=== PATIENT | female | born 1940 ===

== ENCOUNTER 2022-02-12 11:38 | Inpatient (IN) | payer OTHER ==
[2022-02-12] MEDS ORDERED: ACETAMINOPHEN 1000 MG/100 ML BAG IVPB ONE (12:42)
[2022-02-12] MEDS ORDERED: VANCOMYCIN 1 GM in D5W (PRE-DOCKED) 1,000 MG/250 ML IVPB ONE (12:42)
[2022-02-12] MEDS ORDERED: CEFEPIME HCL/D5W 2 GM/50 ML BAG IVPB ONE (12:42)
[2022-02-12] MEDS ORDERED: CEFEPIME 2 GM/100 ML BAG IVPB ONE (13:24)
[2022-02-12] MEDS ORDERED: VANCOMYCIN/WATER FOR INJ (PEG) 1,000 MG/200 ML BAG IVPB ONE (13:24)
[2022-02-12] MEDS ORDERED: ACETAMINOPHEN INJECTION 100 ML IVPB ONE (13:24)
[2022-02-12 15:09] LABS: HEMATOCRIT 36.4 % (32.4-45.2); HEMOGLOBIN 12.4 GM/dL (10.7-15.3); MCHC 33.9 g/dl (32.0-36.0); MEAN CELL VOLUME 91.4 fl (80-96); MEAN PLT VOLUME 6.9 fl (7.5-11.1); PLATELET COUNT 356 10^3/uL (134-434); RBC 3.99 M/mm3 (3.60-5.2); RDW 15.8 % (11.6-15.6)
[2022-02-12 15:18] LABS: INR 2.9 (0.83-1.09); PROTHROMBIN TIME (PATIENT) 33.7 SEC (9.7-13.0)
[2022-02-12 15:21] LABS: ACTIVATED PTT 48.2 SECONDS (25.2-36.5)
[2022-02-12 15:31] LABS: ALBUMIN 3.5 g/dl (3.4-5.0); BLOOD UREA NITROGEN 15.5 mg/dL (7-18)
[2022-02-12 15:34] LABS: CREATININE 0.6 mg/dL (0.55-1.3)
[2022-02-12 15:36] LABS: BILIRUBIN,TOTAL 0.7 mg/dL (0.2-1); TOT PROT 7.1 g/dl (6.4-8.2)
[2022-02-12 16:35] LABS: ERYTHROCYTE SEDIMENTATION RATE 51 mm/hr (0-30)
[2022-02-12] MEDS ORDERED: WARFARIN NA 1 MG TABLET ONE (20:16)
[2022-02-12] MEDS ORDERED: WARFARIN NA 5 MG TABLET ONE (20:16)
[2022-02-12] MEDS: WARFARIN NA 3 MG TABLET PO SCH (20:17)
[2022-02-12] MEDS: ACETAMINOPHEN 325 MG TABLET (FP) PO PRN (20:18)
[2022-02-12] MEDS ORDERED: ACETAMINOPHEN 325 MG TABLET (FP) ONE (20:20)
[2022-02-12] MEDS: ATORVASTATIN CA 20 MG TABLET (FP) PO SCH (21:47)
[2022-02-13] MEDS ORDERED: CEFEPIME 2 GM in DEXTROSE 5%-WATER 100 ML IVPB SCH (01:00)
[2022-02-13] MEDS: ACETAMINOPHEN 325 MG TABLET (FP) PO PRN ×2 (02:25→21:32)
[2022-02-13] MEDS: LISINOPRIL 10 MG TABLET PO SCH (09:13)
[2022-02-13] MEDS: FUROSEMIDE 20 MG TABLET (FP) PO SCH (09:13)
[2022-02-13] MEDS: NIFEdipine E.R. 30 MG TABLET PO SCH (09:13)
[2022-02-13] MEDS: ATENOLOL 50 MG TABLET (FP) PO SCH (09:13)
[2022-02-13] MEDS ORDERED: ENOXAPARIN NA (PORCINE) 40 MG/0.4 ML DISP.SYRIN SQ SCH (10:00)
[2022-02-13] MEDS ORDERED: VANCOMYCIN 1 GM/200 ML PREMIX BAG IVPB SCH ×2 (10:00)
[2022-02-13] MEDS: DULoxetine HCL 20 MG CAPSULE.DR PO SCH (10:52)
[2022-02-13 11:11] LABS: HEMATOCRIT 36.9 % (32.4-45.2); HEMOGLOBIN 12.6 GM/dL (10.7-15.3); MCH 31.1 pg (25.7-33.7); MCHC 34.2 g/dl (32.0-36.0); MEAN CELL VOLUME 90.9 fl (80-96); MEAN PLT VOLUME 6.7 fl (7.5-11.1); PLATELET COUNT 378 10^3/uL (134-434); RBC 4.06 M/mm3 (3.60-5.2); RDW 15.8 % (11.6-15.6); WHITE BLOOD COUNT 6.9 K/mm3 (4.0-10.0)
[2022-02-13 11:46] LABS: BLOOD UREA NITROGEN 15.6 mg/dL (7-18); CALCIUM 8.7 mg/dL (8.5-10.1)
[2022-02-13 11:49] LABS: CREATININE 0.6 mg/dL (0.55-1.3)
[2022-02-13] MEDS ORDERED: PIPERACILLIN/TAZOBACTAM 3.375 GM VIAL IVPB ONE (13:43)
[2022-02-13] MEDS: PIPERACILLIN/TAZOB 3.375 GM 3.375 GM in DEXTROSE 5%-WATER - 50 ML IVPB SCH ×2 (13:56→17:16)
[2022-02-13] MEDS: WARFARIN NA 3 MG TABLET PO SCH (17:16)
[2022-02-13] MEDS: ATORVASTATIN CA 20 MG TABLET (FP) PO SCH (21:33)
[2022-02-14] MEDS: PIPERACILLIN/TAZOB 3.375 GM 3.375 GM in DEXTROSE 5%-WATER - 50 ML IVPB SCH ×3 (01:31→17:14)
[2022-02-14] MEDS: LISINOPRIL 10 MG TABLET PO SCH (10:09)
[2022-02-14] MEDS: NIFEdipine E.R. 30 MG TABLET PO SCH (10:10)
[2022-02-14] MEDS: ACETAMINOPHEN 325 MG TABLET (FP) PO PRN ×2 (10:10→20:49)
[2022-02-14] MEDS: ATENOLOL 50 MG TABLET (FP) PO SCH (10:10)
[2022-02-14] MEDS: FUROSEMIDE 20 MG TABLET (FP) PO SCH (10:10)
[2022-02-14] MEDS: DULoxetine HCL 20 MG CAPSULE.DR PO SCH (10:10)
[2022-02-14 10:21] LABS: HEMATOCRIT 35.8 % (32.4-45.2); HEMOGLOBIN 11.8 GM/dL (10.7-15.3); MCH 30.3 pg (25.7-33.7); MEAN CELL VOLUME 91.9 fl (80-96); PLATELET COUNT 348 10^3/uL (134-434); RDW 15.9 % (11.6-15.6); WHITE BLOOD COUNT 6.1 K/mm3 (4.0-10.0)
[2022-02-14 10:57] LABS: CALCIUM 8.7 mg/dL (8.5-10.1)
[2022-02-14 10:58] LABS: ALBUMIN 2.9 g/dl (3.4-5.0); BLOOD UREA NITROGEN 15.3 mg/dL (7-18); MAGNESIUM 1.9 mg/dL (1.8-2.4)
[2022-02-14 11:01] LABS: CREATININE 0.6 mg/dL (0.55-1.3); PHOSPHOROUS 2.7 mg/dL (2.5-4.9)
[2022-02-14 11:02] LABS: TOT PROT 6.2 g/dl (6.4-8.2)
[2022-02-14 11:04] LABS: BILIRUBIN,TOTAL 0.5 mg/dL (0.2-1)
[2022-02-14 16:45] VITALS: BMI 24.7
[2022-02-14] MEDS: WARFARIN NA 3 MG TABLET PO SCH (17:14)
[2022-02-14] MEDS: ATORVASTATIN CA 20 MG TABLET (FP) PO SCH (21:00)
[2022-02-15] MEDS: PIPERACILLIN/TAZOB 3.375 GM 3.375 GM in DEXTROSE 5%-WATER - 50 ML IVPB SCH ×3 (01:19→18:30)
[2022-02-15] MEDS: ATENOLOL 50 MG TABLET (FP) PO SCH (10:22)
[2022-02-15] MEDS: NIFEdipine E.R. 30 MG TABLET PO SCH (10:22)
[2022-02-15] MEDS: FUROSEMIDE 20 MG TABLET (FP) PO SCH (10:22)
[2022-02-15] MEDS: LISINOPRIL 10 MG TABLET PO SCH (10:22)
[2022-02-15] MEDS: ACETAMINOPHEN 325 MG TABLET (FP) PO PRN ×2 (10:23→18:30)
[2022-02-15] MEDS: DULoxetine HCL 20 MG CAPSULE.DR PO SCH (10:23)
[2022-02-15 11:08] LABS: EOS % 1.7 % (0-4.5); HEMATOCRIT 32.4 % (32.4-45.2); HEMOGLOBIN 11.2 GM/dL (10.7-15.3); LYMPH % 19.4 % (8-40); MCH 31.5 pg (25.7-33.7); MCHC 34.6 g/dl (32.0-36.0); MEAN CELL VOLUME 91.1 fl (80-96); MEAN PLT VOLUME 6.7 fl (7.5-11.1); MONO % 9.2 % (3.8-10.2); NEUT % 68.7 % (42.8-82.8); PLATELET COUNT 315 10^3/uL (134-434); RBC 3.56 M/mm3 (3.60-5.2); WHITE BLOOD COUNT 6.8 K/mm3 (4.0-10.0)
[2022-02-15 11:12] LABS: INR 3.42 (0.83-1.09); PROTHROMBIN TIME (PATIENT) 39.8 SEC (9.7-13.0)
[2022-02-15 11:31] LABS: ALBUMIN 2.5 g/dl (3.4-5.0); BLOOD UREA NITROGEN 15.6 mg/dL (7-18); CALCIUM 8.5 mg/dL (8.5-10.1); MAGNESIUM 1.9 mg/dL (1.8-2.4)
[2022-02-15 11:34] LABS: BILIRUBIN,TOTAL 0.4 mg/dL (0.2-1); CREATININE 0.5 mg/dL (0.55-1.3); TOT PROT 5.6 g/dl (6.4-8.2)
[2022-02-15] MEDS: WARFARIN NA 3 MG TABLET PO SCH (18:30)
[2022-02-15] MEDS: ATORVASTATIN CA 20 MG TABLET (FP) PO SCH (21:05)
[2022-02-16] MEDS: PIPERACILLIN/TAZOB 3.375 GM 3.375 GM in DEXTROSE 5%-WATER - 50 ML IVPB SCH ×3 (01:03→17:17)
[2022-02-16] MEDS: ATENOLOL 50 MG TABLET (FP) PO SCH (10:03)
[2022-02-16] MEDS: DULoxetine HCL 20 MG CAPSULE.DR PO SCH (10:03)
[2022-02-16] MEDS: FUROSEMIDE 20 MG TABLET (FP) PO SCH (10:03)
[2022-02-16] MEDS: NIFEdipine E.R. 30 MG TABLET PO SCH (10:03)
[2022-02-16] MEDS: ACETAMINOPHEN 325 MG TABLET (FP) PO PRN (10:03)
[2022-02-16] MEDS: LISINOPRIL 10 MG TABLET PO SCH (10:03)
[2022-02-16 12:44] LABS: BASO % 1.2 % (0-2.0); EOS % 2.3 % (0-4.5); HEMATOCRIT 32.9 % (32.4-45.2); HEMOGLOBIN 11.4 GM/dL (10.7-15.3); LYMPH % 22.4 % (8-40); MCH 31.5 pg (25.7-33.7); MCHC 34.6 g/dl (32.0-36.0); MEAN CELL VOLUME 91.2 fl (80-96); MEAN PLT VOLUME 6.7 fl (7.5-11.1); MONO % 11.6 % (3.8-10.2); NEUT % 62.5 % (42.8-82.8); PLATELET COUNT 325 10^3/uL (134-434); RDW 15.5 % (11.6-15.6); WHITE BLOOD COUNT 7.2 K/mm3 (4.0-10.0)
[2022-02-16 13:06] LABS: CALCIUM 8.7 mg/dL (8.5-10.1)
[2022-02-16 13:07] LABS: ALBUMIN 2.7 g/dl (3.4-5.0); BLOOD UREA NITROGEN 16.2 mg/dL (7-18); MAGNESIUM 1.9 mg/dL (1.8-2.4)
[2022-02-16 13:10] LABS: CREATININE 0.5 mg/dL (0.55-1.3); PHOSPHOROUS 3.8 mg/dL (2.5-4.9)
[2022-02-16 13:11] LABS: BILIRUBIN,TOTAL 0.4 mg/dL (0.2-1); TOT PROT 5.7 g/dl (6.4-8.2)
[2022-02-16 16:00] LABS: INR 2.29 (0.83-1.09); PROTHROMBIN TIME (PATIENT) 26.6 SEC (9.7-13.0)
[2022-02-16] MEDS: WARFARIN NA 3 MG TABLET PO SCH (17:17)
[2022-02-16] MEDS: ATORVASTATIN CA 20 MG TABLET (FP) PO SCH (21:48)
[2022-02-17] MEDS: PIPERACILLIN/TAZOB 3.375 GM 3.375 GM in DEXTROSE 5%-WATER - 50 ML IVPB SCH ×2 (01:22→10:21)
[2022-02-17] MEDS: LISINOPRIL 10 MG TABLET PO SCH (10:20)
[2022-02-17] MEDS: FUROSEMIDE 20 MG TABLET (FP) PO SCH (10:20)
[2022-02-17] MEDS: DULoxetine HCL 20 MG CAPSULE.DR PO SCH (10:21)
[2022-02-17] MEDS: ATENOLOL 50 MG TABLET (FP) PO SCH (10:21)
[2022-02-17] MEDS: NIFEdipine E.R. 30 MG TABLET PO SCH (10:21)
[2022-02-17 12:57] LABS: HEMATOCRIT 33.5 % (32.4-45.2); HEMOGLOBIN 11.3 GM/dL (10.7-15.3); MCH 30.8 pg (25.7-33.7); MCHC 33.7 g/dl (32.0-36.0); MEAN CELL VOLUME 91.3 fl (80-96); MEAN PLT VOLUME 6.7 fl (7.5-11.1); PLATELET COUNT 326 10^3/uL (134-434); RBC 3.67 M/mm3 (3.60-5.2); RDW 15.4 % (11.6-15.6); WHITE BLOOD COUNT 6.8 K/mm3 (4.0-10.0)
[2022-02-17 13:01] LABS: INR 2.2 (0.83-1.09); PROTHROMBIN TIME (PATIENT) 25.5 SEC (9.7-13.0)
[2022-02-17] MEDS: CEFTAZIDIME/AVIBACTAM 2.5 GM in DEXTROSE 5%-WATER - 250 ML IVPB SCH ×2 (13:14→17:14)
[2022-02-17 14:04] LABS: ALBUMIN 2.7 g/dl (3.4-5.0)
[2022-02-17 14:05] LABS: BLOOD UREA NITROGEN 16.4 mg/dL (7-18)
[2022-02-17 14:08] LABS: CREATININE 0.6 mg/dL (0.55-1.3)
[2022-02-17 14:09] LABS: BILIRUBIN,TOTAL 0.5 mg/dL (0.2-1); TOT PROT 5.9 g/dl (6.4-8.2)
[2022-02-17] MEDS: WARFARIN NA 3 MG TABLET PO SCH (17:14)
[2022-02-17] MEDS: AMOX TR/POT CLAV 875MG/125MG TABLETS (FP) PO SCH (17:14)
[2022-02-17] MEDS ORDERED: PHYTONADIONE 10 MG/1 ML AMP IVPB ONE (18:52)
[2022-02-17] MEDS: ATORVASTATIN CA 20 MG TABLET (FP) PO SCH (21:55)
[2022-02-18] MEDS: CEFTAZIDIME/AVIBACTAM 2.5 GM in DEXTROSE 5%-WATER - 250 ML IVPB SCH ×3 (03:32→17:19)
[2022-02-18] MEDS: AMOX TR/POT CLAV 875MG/125MG TABLETS (FP) PO SCH ×2 (08:03→16:36)
[2022-02-18 08:27] LABS: HEMATOCRIT 33.4 % (32.4-45.2); HEMOGLOBIN 11.6 GM/dL (10.7-15.3); MCH 31.3 pg (25.7-33.7); MCHC 34.7 g/dl (32.0-36.0); MEAN CELL VOLUME 90.3 fl (80-96); MEAN PLT VOLUME 6.6 fl (7.5-11.1); PLATELET COUNT 304 10^3/uL (134-434); RDW 15.1 % (11.6-15.6); WHITE BLOOD COUNT 6.2 K/mm3 (4.0-10.0)
[2022-02-18] MEDS ORDERED: ENOXAPARIN NA (PORCINE) 60 MG/0.6 ML DISP.SYRIN SQ SCH (08:45)
[2022-02-18 08:49] LABS: CALCIUM 8.8 mg/dL (8.5-10.1)
[2022-02-18 08:50] LABS: ALBUMIN 2.8 g/dl (3.4-5.0); MAGNESIUM 1.9 mg/dL (1.8-2.4)
[2022-02-18 08:53] LABS: CREATININE 0.5 mg/dL (0.55-1.3)
[2022-02-18 08:54] LABS: BILIRUBIN,TOTAL 0.6 mg/dL (0.2-1)
[2022-02-18] MEDS: FUROSEMIDE 20 MG TABLET (FP) PO SCH (09:37)
[2022-02-18] MEDS: NIFEdipine E.R. 30 MG TABLET PO SCH (09:40)
[2022-02-18] MEDS: LISINOPRIL 10 MG TABLET PO SCH (09:40)
[2022-02-18] MEDS: ATENOLOL 50 MG TABLET (FP) PO SCH (09:40)
[2022-02-18 11:14] LABS: INR 1.65 (0.83-1.09); PROTHROMBIN TIME (PATIENT) 19.1 SEC (9.7-13.0)
[2022-02-18] MEDS: DULoxetine HCL 20 MG CAPSULE.DR PO SCH (11:37)
[2022-02-18] MEDS ORDERED: MAGNESIUM SULF 50% (8.12 MEQ/2 ML-1 GM VIAL) IVPB ONE (20:10)
[2022-02-18] MEDS: ATORVASTATIN CA 20 MG TABLET (FP) PO SCH (22:22)
[2022-02-19] MEDS: CEFTAZIDIME/AVIBACTAM 2.5 GM in DEXTROSE 5%-WATER - 250 ML IVPB SCH ×3 (01:31→17:22)
[2022-02-19] MEDS: AMOX TR/POT CLAV 875MG/125MG TABLETS (FP) PO SCH ×2 (08:33→17:02)
[2022-02-19] MEDS: LISINOPRIL 10 MG TABLET PO SCH (10:13)
[2022-02-19] MEDS: NIFEdipine E.R. 30 MG TABLET PO SCH (10:13)
[2022-02-19] MEDS: DULoxetine HCL 20 MG CAPSULE.DR PO SCH (10:13)
[2022-02-19] MEDS: ATENOLOL 50 MG TABLET (FP) PO SCH (10:13)
[2022-02-19] MEDS: FUROSEMIDE 20 MG TABLET (FP) PO SCH (10:13)
[2022-02-19 10:35] LABS: BASO % 0.7 % (0-2.0); EOS % 2.3 % (0-4.5); HEMATOCRIT 35.8 % (32.4-45.2); HEMOGLOBIN 11.9 GM/dL (10.7-15.3); LYMPH % 19.3 % (8-40); MCH 30.3 pg (25.7-33.7); MCHC 33.3 g/dl (32.0-36.0); MEAN PLT VOLUME 6.6 fl (7.5-11.1); MONO % 9.1 % (3.8-10.2); NEUT % 68.6 % (42.8-82.8); PLATELET COUNT 327 10^3/uL (134-434); RBC 3.93 M/mm3 (3.60-5.2); RDW 15.4 % (11.6-15.6); WHITE BLOOD COUNT 7.3 K/mm3 (4.0-10.0)
[2022-02-19 10:41] LABS: INR 1.28 (0.83-1.09); PROTHROMBIN TIME (PATIENT) 14.8 SEC (9.7-13.0)
[2022-02-19 11:28] LABS: CALCIUM 9.1 mg/dL (8.5-10.1)
[2022-02-19 11:29] LABS: BLOOD UREA NITROGEN 12.4 mg/dL (7-18)
[2022-02-19 11:33] LABS: CREATININE 0.4 mg/dL (0.55-1.3)
[2022-02-19] MEDS: ENOXAPARIN NA (PORCINE) 40 MG/0.4 ML DISP.SYRIN SQ SCH (15:45)
[2022-02-19] MEDS: WARFARIN NA 3 MG TABLET PO SCH (17:21)
[2022-02-19] MEDS: ATORVASTATIN CA 20 MG TABLET (FP) PO SCH (22:09)
[2022-02-20] MEDS: CEFTAZIDIME/AVIBACTAM 2.5 GM in DEXTROSE 5%-WATER - 250 ML IVPB SCH ×3 (01:48→17:23)
[2022-02-20] MEDS: ENOXAPARIN NA (PORCINE) 40 MG/0.4 ML DISP.SYRIN SQ SCH ×2 (05:48→17:23)
[2022-02-20] MEDS: AMOX TR/POT CLAV 875MG/125MG TABLETS (FP) PO SCH ×2 (08:24→17:22)
[2022-02-20 09:32] LABS: HEMATOCRIT 34.8 % (32.4-45.2); HEMOGLOBIN 11.4 GM/dL (10.7-15.3); MCH 29.5 pg (25.7-33.7); MCHC 32.6 g/dl (32.0-36.0); MEAN CELL VOLUME 90.5 fl (80-96); MEAN PLT VOLUME 7.2 fl (7.5-11.1); PLATELET COUNT 346 10^3/uL (134-434); RBC 3.85 M/mm3 (3.60-5.2); RDW 15.6 % (11.6-15.6); WHITE BLOOD COUNT 9.6 K/mm3 (4.0-10.0)
[2022-02-20] MEDS: LISINOPRIL 10 MG TABLET PO SCH (10:06)
[2022-02-20] MEDS: NIFEdipine E.R. 30 MG TABLET PO SCH (10:07)
[2022-02-20] MEDS: DULoxetine HCL 20 MG CAPSULE.DR PO SCH (10:07)
[2022-02-20] MEDS: ATENOLOL 50 MG TABLET (FP) PO SCH (10:07)
[2022-02-20 10:10] LABS: ALBUMIN 3.2 g/dl (3.4-5.0); BLOOD UREA NITROGEN 18.3 mg/dL (7-18); CALCIUM 9.1 mg/dL (8.5-10.1)
[2022-02-20 10:13] LABS: CREATININE 0.5 mg/dL (0.55-1.3)
[2022-02-20 10:14] LABS: BILIRUBIN,TOTAL 1.2 mg/dL (0.2-1); TOT PROT 6.8 g/dl (6.4-8.2)
[2022-02-20] MEDS: MULTIVITAMINS THER W-MINERALS COMBO TABLET (FP) PO SCH (17:22)
[2022-02-20] MEDS: WARFARIN NA 3 MG TABLET PO SCH (17:23)
[2022-02-20] MEDS: ASCORBIC ACID 250 MG TABLET (FP) PO SCH ×2 (17:23→21:11)
[2022-02-20] MEDS: AMINO ACIDS/PROTEIN HYDROLYS 30 ML LIQUID.PKT PO SCH (17:23)
[2022-02-20] MEDS: ATORVASTATIN CA 20 MG TABLET (FP) PO SCH (21:11)
[2022-02-21] MEDS: CEFTAZIDIME/AVIBACTAM 2.5 GM in DEXTROSE 5%-WATER - 250 ML IVPB SCH ×3 (02:12→17:06)
[2022-02-21] MEDS: ENOXAPARIN NA (PORCINE) 40 MG/0.4 ML DISP.SYRIN SQ SCH ×2 (06:39→17:05)
[2022-02-21 07:59] LABS: HEMATOCRIT 30.4 % (32.4-45.2); HEMOGLOBIN 10.4 GM/dL (10.7-15.3); MCH 30.9 pg (25.7-33.7); MCHC 34.1 g/dl (32.0-36.0); MEAN CELL VOLUME 90.6 fl (80-96); MEAN PLT VOLUME 6.9 fl (7.5-11.1); PLATELET COUNT 266 10^3/uL (134-434); RBC 3.36 M/mm3 (3.60-5.2); RDW 15.3 % (11.6-15.6); WHITE BLOOD COUNT 9.2 K/mm3 (4.0-10.0)
[2022-02-21 08:13] LABS: ALBUMIN 2.8 g/dl (3.4-5.0); BLOOD UREA NITROGEN 15.1 mg/dL (7-18); CALCIUM 8.8 mg/dL (8.5-10.1); MAGNESIUM 1.9 mg/dL (1.8-2.4)
[2022-02-21 08:15] LABS: CREATININE 0.5 mg/dL (0.55-1.3)
[2022-02-21 08:17] LABS: BILIRUBIN,TOTAL 0.7 mg/dL (0.2-1)
[2022-02-21] MEDS: AMINO ACIDS/PROTEIN HYDROLYS 30 ML LIQUID.PKT PO SCH (09:20)
[2022-02-21] MEDS: AMOX TR/POT CLAV 875MG/125MG TABLETS (FP) PO SCH ×2 (09:20→17:05)
[2022-02-21] MEDS: ASCORBIC ACID 250 MG TABLET (FP) PO SCH ×2 (09:20→20:59)
[2022-02-21] MEDS: LISINOPRIL 10 MG TABLET PO SCH (09:20)
[2022-02-21] MEDS: MULTIVITAMINS THER W-MINERALS COMBO TABLET (FP) PO SCH (09:20)
[2022-02-21] MEDS: DULoxetine HCL 20 MG CAPSULE.DR PO SCH (09:20)
[2022-02-21] MEDS: NIFEdipine E.R. 30 MG TABLET PO SCH (09:20)
[2022-02-21] MEDS: ATENOLOL 50 MG TABLET (FP) PO SCH (09:21)
[2022-02-21] MEDS: ATORVASTATIN CA 20 MG TABLET (FP) PO SCH (20:59)
[2022-02-21] MEDS: ACETAMINOPHEN 325 MG TABLET (FP) PO PRN (20:59)
[2022-02-22] MEDS: CEFTAZIDIME/AVIBACTAM 2.5 GM in DEXTROSE 5%-WATER - 250 ML IVPB SCH ×2 (02:57→09:03)
[2022-02-22] MEDS: ENOXAPARIN NA (PORCINE) 40 MG/0.4 ML DISP.SYRIN SQ SCH (05:19)
[2022-02-22] MEDS: AMINO ACIDS/PROTEIN HYDROLYS 30 ML LIQUID.PKT PO SCH (07:52)
[2022-02-22] MEDS: AMOX TR/POT CLAV 875MG/125MG TABLETS (FP) PO SCH ×2 (07:52→17:38)
[2022-02-22] MEDS: MULTIVITAMINS THER W-MINERALS COMBO TABLET (FP) PO SCH (09:02)
[2022-02-22] MEDS: DULoxetine HCL 20 MG CAPSULE.DR PO SCH (09:02)
[2022-02-22] MEDS: ASCORBIC ACID 250 MG TABLET (FP) PO SCH ×2 (09:02→21:35)
[2022-02-22] MEDS: ATENOLOL 50 MG TABLET (FP) PO SCH (09:02)
[2022-02-22] MEDS: LISINOPRIL 10 MG TABLET PO SCH (09:02)
[2022-02-22] MEDS: NIFEdipine E.R. 30 MG TABLET PO SCH (09:02)
[2022-02-22 10:15] LABS: HEMOGLOBIN 11.2 GM/dL (10.7-15.3); LYMPH % 18.8 % (8-40); MCH 30.8 pg (25.7-33.7); MCHC 34.1 g/dl (32.0-36.0); MEAN CELL VOLUME 90.2 fl (80-96); MONO % 13.1 % (3.8-10.2); NEUT % 65.1 % (42.8-82.8); PLATELET COUNT 298 10^3/uL (134-434); RBC 3.66 M/mm3 (3.60-5.2); RDW 15.8 % (11.6-15.6); WHITE BLOOD COUNT 7.4 K/mm3 (4.0-10.0)
[2022-02-22 10:19] LABS: INR 1.4 (0.83-1.09); PROTHROMBIN TIME (PATIENT) 16.1 SEC (9.7-13.0)
[2022-02-22 10:27] LABS: URINE APPEARANCE CLEAR; URINE BILIRUBIN NEGATIVE (NEGATIVE); URINE COLOR YELLOW; URINE GLUCOSE (UA) NEGATIVE (NEGATIVE); URINE KETONE NEGATIVE (NEGATIVE); URINE LEUK ESTERASE NEGATIVE (NEGATIVE); URINE NITRITE NEGATIVE (NEGATIVE); URINE PROTEIN NEGATIVE (NEGATIVE); URINE UROBILINOGEN 0.2 mg/dL (0.2-1.0)
[2022-02-22 10:49] LABS: BLOOD UREA NITROGEN 14.4 mg/dL (7-18); CALCIUM 8.5 mg/dL (8.5-10.1); CREATININE 0.4 mg/dL (0.55-1.3); URIC ACID 2.2 mg/dL (2.6-7.2)
[2022-02-22] MEDS: CEFTAZIDIME/AVIBACTAM 2.5 GM in SODIUM CHLORIDE 250 ML IVPB SCH (17:38)
[2022-02-22] MEDS ORDERED: SODIUM CHLORIDE 500 ML IV STA (18:31)
[2022-02-22] MEDS: ACETAMINOPHEN 325 MG TABLET (FP) PO PRN (21:35)
[2022-02-22] MEDS: ATORVASTATIN CA 20 MG TABLET (FP) PO SCH (21:35)
[2022-02-22] MEDS: ENOXAPARIN NA (PORCINE) 60 MG/0.6 ML DISP.SYRIN SQ SCH (21:36)
[2022-02-23] MEDS: CEFTAZIDIME/AVIBACTAM 2.5 GM in SODIUM CHLORIDE 250 ML IVPB SCH ×3 (02:53→17:07)
[2022-02-23] MEDS: AMINO ACIDS/PROTEIN HYDROLYS 30 ML LIQUID.PKT PO SCH (07:46)
[2022-02-23] MEDS: AMOX TR/POT CLAV 875MG/125MG TABLETS (FP) PO SCH ×2 (08:06→17:07)
[2022-02-23] MEDS: LISINOPRIL 10 MG TABLET PO SCH (09:26)
[2022-02-23] MEDS: NIFEdipine E.R. 30 MG TABLET PO SCH (09:26)
[2022-02-23] MEDS: ASCORBIC ACID 250 MG TABLET (FP) PO SCH ×2 (09:26→22:08)
[2022-02-23] MEDS: ENOXAPARIN NA (PORCINE) 60 MG/0.6 ML DISP.SYRIN SQ SCH (09:26)
[2022-02-23] MEDS: MULTIVITAMINS THER W-MINERALS COMBO TABLET (FP) PO SCH (09:27)
[2022-02-23] MEDS: ATENOLOL 50 MG TABLET (FP) PO SCH (09:27)
[2022-02-23 10:15] LABS: BASO % 0.8 % (0-2.0); EOS % 1.9 % (0-4.5); HEMOGLOBIN 11.1 GM/dL (10.7-15.3); LYMPH % 16.1 % (8-40); MCH 29.6 pg (25.7-33.7); MCHC 32.6 g/dl (32.0-36.0); MEAN CELL VOLUME 90.8 fl (80-96); MEAN PLT VOLUME 7.3 fl (7.5-11.1); MONO % 10.9 % (3.8-10.2); NEUT % 70.3 % (42.8-82.8); PLATELET COUNT 333 10^3/uL (134-434); RBC 3.74 M/mm3 (3.60-5.2); RDW 15.5 % (11.6-15.6); WHITE BLOOD COUNT 7.7 K/mm3 (4.0-10.0)
[2022-02-23 10:20] LABS: INR 1.33 (0.83-1.09); PROTHROMBIN TIME (PATIENT) 15.3 SEC (9.7-13.0)
[2022-02-23 10:57] LABS: BLOOD UREA NITROGEN 14.5 mg/dL (7-18)
[2022-02-23 10:59] LABS: CREATININE 0.4 mg/dL (0.55-1.3)
[2022-02-23] MEDS: SODIUM CHLORIDE 1 GM TABLET PO SCH ×2 (13:08→22:09)
[2022-02-23] MEDS ORDERED: SODIUM CHLORIDE 1 GM TABLET PO ONE (20:00)
[2022-02-23] MEDS: ATORVASTATIN CA 20 MG TABLET (FP) PO SCH (22:08)
[2022-02-24] MEDS: CEFTAZIDIME/AVIBACTAM 2.5 GM in SODIUM CHLORIDE 250 ML IVPB SCH ×3 (02:50→17:31)
[2022-02-24] MEDS: ASCORBIC ACID 250 MG TABLET (FP) PO SCH ×2 (09:54→21:34)
[2022-02-24] MEDS: AMOX TR/POT CLAV 875MG/125MG TABLETS (FP) PO SCH ×2 (09:54→17:31)
[2022-02-24] MEDS: NIFEdipine E.R. 30 MG TABLET PO SCH ×2 (09:54→11:36)
[2022-02-24] MEDS: SODIUM CHLORIDE 1 GM TABLET PO SCH ×2 (09:54→21:35)
[2022-02-24] MEDS: ATENOLOL 50 MG TABLET (FP) PO SCH ×2 (09:54→11:32)
[2022-02-24] MEDS: MULTIVITAMINS THER W-MINERALS COMBO TABLET (FP) PO SCH (09:54)
[2022-02-24] MEDS: AMINO ACIDS/PROTEIN HYDROLYS 30 ML LIQUID.PKT PO SCH (09:54)
[2022-02-24] MEDS: LISINOPRIL 10 MG TABLET PO SCH ×3 (09:54→11:30)
[2022-02-24 09:57] LABS: BASO % 0.9 % (0-2.0); EOS % 1.7 % (0-4.5); HEMATOCRIT 32.7 % (32.4-45.2); HEMOGLOBIN 11.1 GM/dL (10.7-15.3); INR 1.33 (0.83-1.09); LYMPH % 15.3 % (8-40); MCH 30.6 pg (25.7-33.7); MCHC 33.9 g/dl (32.0-36.0); MEAN CELL VOLUME 90.4 fl (80-96); MEAN PLT VOLUME 6.8 fl (7.5-11.1); MONO % 11.7 % (3.8-10.2); NEUT % 70.4 % (42.8-82.8); PLATELET COUNT 317 10^3/uL (134-434); PROTHROMBIN TIME (PATIENT) 15.3 SEC (9.7-13.0); RBC 3.62 M/mm3 (3.60-5.2); RDW 15.4 % (11.6-15.6); WHITE BLOOD COUNT 6.6 K/mm3 (4.0-10.0)
[2022-02-24 10:20] LABS: BLOOD UREA NITROGEN 13.3 mg/dL (7-18); CALCIUM 9.2 mg/dL (8.5-10.1)
[2022-02-24 10:23] LABS: CREATININE 0.4 mg/dL (0.55-1.3)
[2022-02-24] MEDS ORDERED: NIFEdipine E.R. 30 MG TABLET PO SCH (14:41)
[2022-02-24] MEDS ORDERED: FUROSEMIDE 20 MG TABLET (FP) PO ONE (15:04)
[2022-02-24] MEDS ORDERED: oxyCODONE HCL 5 MG TABLET PO PRN (15:15)
[2022-02-24] MEDS ORDERED: ACETAMINOPHEN 325 MG TABLET (FP) PO PRN (15:15)
[2022-02-24] MEDS: ATORVASTATIN CA 20 MG TABLET (FP) PO SCH (21:35)
[2022-02-25] MEDS: CEFTAZIDIME/AVIBACTAM 2.5 GM in SODIUM CHLORIDE 250 ML IVPB SCH ×4 (01:22→22:10)
[2022-02-25] MEDS: AMOX TR/POT CLAV 875MG/125MG TABLETS (FP) PO SCH ×2 (08:53→17:25)
[2022-02-25] MEDS: AMINO ACIDS/PROTEIN HYDROLYS 30 ML LIQUID.PKT PO SCH (08:53)
[2022-02-25] MEDS: ASCORBIC ACID 250 MG TABLET (FP) PO SCH ×2 (08:59→21:35)
[2022-02-25] MEDS: MULTIVITAMINS THER W-MINERALS COMBO TABLET (FP) PO SCH (08:59)
[2022-02-25] MEDS: SODIUM CHLORIDE 1 GM TABLET PO SCH ×2 (08:59→21:35)
[2022-02-25] MEDS: ATENOLOL 50 MG TABLET (FP) PO SCH (08:59)
[2022-02-25] MEDS: LISINOPRIL 10 MG TABLET PO SCH (09:00)
[2022-02-25 12:11] LABS: HEMATOCRIT 33.8 % (32.4-45.2); MCH 29.5 pg (25.7-33.7); MCHC 32.6 g/dl (32.0-36.0); MEAN CELL VOLUME 90.5 fl (80-96); MEAN PLT VOLUME 7.1 fl (7.5-11.1); PLATELET COUNT 314 10^3/uL (134-434); RBC 3.73 M/mm3 (3.60-5.2); RDW 15.5 % (11.6-15.6); WHITE BLOOD COUNT 8.2 K/mm3 (4.0-10.0)
[2022-02-25 12:24] LABS: BLOOD UREA NITROGEN 11.7 mg/dL (7-18); CALCIUM 8.8 mg/dL (8.5-10.1); MAGNESIUM 2.2 mg/dL (1.8-2.4)
[2022-02-25 12:28] LABS: CREATININE 0.4 mg/dL (0.55-1.3)
[2022-02-25 12:29] LABS: BILIRUBIN,TOTAL 0.7 mg/dL (0.2-1); TOT PROT 6.7 g/dl (6.4-8.2)
[2022-02-25] MEDS ORDERED: LIDOCAINE HCL 1%, 10 MG/ML (20ML VIAL) ONE (16:00)
[2022-02-25] MEDS ORDERED: PAPAVERINE HCL 30 MG/1 ML 10 ML VIAL NR ONE (16:00)
[2022-02-25] MEDS ORDERED: HEPARIN NA (PORCINE) 5,000 UNITS/ML 1ML VIAL ONE (16:00)
[2022-02-25] MEDS ORDERED: MIDAZOLAM HCL 2 MG/2 ML SINGLE DOSE VIAL ONE (17:31)
[2022-02-25] MEDS ORDERED: PROPOFOL 20 ML ONE (17:31)
[2022-02-25] MEDS ORDERED: ceFAZolin SODIUM 1 GM VIAL IVPB ONE (17:45)
[2022-02-25] MEDS ORDERED: LIDOCAINE HCL 1%, 10 MG/ML (20ML VIAL) INF ONE ×2 (17:49)
[2022-02-25] MEDS ORDERED: ACETAMINOPHEN 1000 MG/100 ML BAG IVPB PRN ×2 (18:27→19:05)
[2022-02-25] MEDS ORDERED: ONDANSETRON 4 MG/2 ML VIAL IVPUSH PRN ×2 (18:27→19:05)
[2022-02-25] MEDS ORDERED: LACTATED RINGERS SOLUTION 1,000 ML IV SCH (18:30)
[2022-02-25] MEDS ORDERED: ACETAMINOPHEN 325 MG TABLET (FP) PO PRN (19:05)
[2022-02-25] MEDS ORDERED: oxyCODONE HCL 5 MG TABLET PO PRN (19:05)
[2022-02-25] MEDS: LACTATED RINGERS SOLUTION 1,000 ML IV SCH (21:27)
[2022-02-25] MEDS ORDERED: CEFTAZIDIME/AVIBACTAM 2.5 GM in SODIUM CHLORIDE 250 ML IVPB SCH (21:30)
[2022-02-25] MEDS: ATORVASTATIN CA 20 MG TABLET (FP) PO SCH (21:35)
[2022-02-25] MEDS: CLOPIDOGREL BISULFATE 75 MG TABLET (FP) PO SCH (21:35)
[2022-02-26] MEDS: CEFTAZIDIME/AVIBACTAM 2.5 GM in SODIUM CHLORIDE 250 ML IVPB SCH ×3 (06:06→21:05)
[2022-02-26] MEDS: AMOX TR/POT CLAV 875MG/125MG TABLETS (FP) PO SCH ×2 (08:34→17:34)
[2022-02-26 09:11] LABS: CALCIUM 8.9 mg/dL (8.5-10.1)
[2022-02-26 09:12] LABS: BLOOD UREA NITROGEN 10.9 mg/dL (7-18)
[2022-02-26 09:15] LABS: CREATININE 0.4 mg/dL (0.55-1.3)
[2022-02-26 09:17] LABS: TOT PROT 6.5 g/dl (6.4-8.2)
[2022-02-26] MEDS: ASCORBIC ACID 250 MG TABLET (FP) PO SCH ×2 (09:33→21:06)
[2022-02-26] MEDS: AMINO ACIDS/PROTEIN HYDROLYS 30 ML LIQUID.PKT PO SCH (09:33)
[2022-02-26] MEDS: ACETAMINOPHEN 325 MG TABLET (FP) PO PRN ×2 (09:33→21:14)
[2022-02-26] MEDS: ATENOLOL 50 MG TABLET (FP) PO SCH (09:34)
[2022-02-26] MEDS: SODIUM CHLORIDE 1 GM TABLET PO SCH (09:34)
[2022-02-26] MEDS: LACTATED RINGERS SOLUTION 1,000 ML IV SCH (09:34)
[2022-02-26] MEDS: CLOPIDOGREL BISULFATE 75 MG TABLET (FP) PO SCH (09:34)
[2022-02-26] MEDS: LISINOPRIL 10 MG TABLET PO SCH (09:34)
[2022-02-26] MEDS: NIFEdipine E.R 60 MG TABLET PO SCH (09:34)
[2022-02-26] MEDS: MULTIVITAMINS THER W-MINERALS COMBO TABLET (FP) PO SCH (09:34)
[2022-02-26] MEDS ORDERED: ASPIRIN 81 MG CHEWABLE TABLETS PO SCH (16:00)
[2022-02-26] MEDS ORDERED: WARFARIN NA 3 MG TABLET PO SCH (18:00)
[2022-02-26] MEDS ORDERED: CEFTAZIDIME/AVIBACTAM 2.5 GM in SODIUM CHLORIDE 250 ML IVPB SCH (19:30)
[2022-02-26] MEDS: ATORVASTATIN CA 20 MG TABLET (FP) PO SCH (21:06)
[2022-02-27] MEDS: CEFTAZIDIME/AVIBACTAM 2.5 GM in SODIUM CHLORIDE 250 ML IVPB SCH ×2 (05:55→13:10)
[2022-02-27 06:04] VITALS: RESP 18
[2022-02-27] MEDS: AMINO ACIDS/PROTEIN HYDROLYS 30 ML LIQUID.PKT PO SCH (08:55)
[2022-02-27] MEDS: ASCORBIC ACID 250 MG TABLET (FP) PO SCH (09:02)
[2022-02-27] MEDS: MULTIVITAMINS THER W-MINERALS COMBO TABLET (FP) PO SCH (09:02)
[2022-02-27] MEDS: NIFEdipine E.R 60 MG TABLET PO SCH (09:03)
[2022-02-27] MEDS: CLOPIDOGREL BISULFATE 75 MG TABLET (FP) PO SCH (09:03)
[2022-02-27] MEDS: ATENOLOL 50 MG TABLET (FP) PO SCH (09:03)
[2022-02-27] MEDS: LISINOPRIL 10 MG TABLET PO SCH (09:03)
[2022-02-27 09:37] LABS: HEMOGLOBIN 10.7 GM/dL (10.7-15.3); MCH 31.2 pg (25.7-33.7); MCHC 34.4 g/dl (32.0-36.0); MEAN CELL VOLUME 90.5 fl (80-96); PLATELET COUNT 300 10^3/uL (134-434); RBC 3.43 M/mm3 (3.60-5.2); RDW 15.5 % (11.6-15.6); WHITE BLOOD COUNT 9.1 K/mm3 (4.0-10.0)
[2022-02-27 09:46] LABS: INR 1.25 (0.83-1.09); PROTHROMBIN TIME (PATIENT) 14.4 SEC (9.7-13.0)
[2022-02-27] MEDS ORDERED: SODIUM CHLORIDE 1 GM TABLET PO SCH (10:00)
[2022-02-27 10:09] LABS: ALBUMIN 2.9 g/dl (3.4-5.0)
[2022-02-27 10:11] LABS: CREATININE 0.4 mg/dL (0.55-1.3)
[2022-02-27 10:13] LABS: BILIRUBIN,TOTAL 0.8 mg/dL (0.2-1); TOT PROT 6.5 g/dl (6.4-8.2)
[2022-02-27 14:23] VITALS: BP 128/74; PULSE 102; TEMP 99
[2022-02-27] MEDS ORDERED: ENOXAPARIN NA (PORCINE) 40 MG/0.4 ML DISP.SYRIN SQ ONE (14:43)
[2022-02-27] MEDS ORDERED: ENOXAPARIN NA (PORCINE) 80 MG/0.8 ML DISP.SYRIN SQ ONE (15:15)
== END 2022-02-27 16:12 | disposition home or self-care (01) | DRG 253 ==
LOC: JER 11:38 → JERBED 12:48 → J6S 20:53
PROVIDERS: ADMIT Internal Medicine; ATTEND Internal Medicine
PROC: B41DYZZ Fluoroscopy of Aorta and Bilateral Lower Extremity Arteries using Other Contrast (ICD-10-PCS; 2022-02-25)
PROC: B41GZZZ Fluoroscopy of Left Lower Extremity Arteries (ICD-10-PCS; 2022-02-25)
PROC: 047Q3ZZ Dilation of Left Anterior Tibial Artery, Percutaneous Approach (ICD-10-PCS; principal; 2022-02-25 17:49)
DX: I73.9 Peripheral vascular disease, unspecified (principal); E22.2 Syndrome of inappropriate secretion of antidiuretic hormone; L03.116 Cellulitis of left lower limb; L97.329 Non-pressure chronic ulcer of left ankle with unspecified severity; I74.3 Embolism and thrombosis of arteries of the lower extremities; I10 Essential (primary) hypertension; Z79.01 Long term (current) use of anticoagulants; I25.2 Old myocardial infarction; Z79.84 Long term (current) use of oral hypoglycemic drugs; I25.10 Atherosclerotic heart disease of native coronary artery without angina pectoris; H81.09 Meniere's disease, unspecified ear; I48.0 Paroxysmal atrial fibrillation
CPT/HCPCS: 0241U-QW; 36415; 73610-TC-LT-FY; 73630-TC-LT; 73718-TC-LT; 76000-TC-FY; 80048; 80053; 81003; 82024; 82533; 82962; 83036; 83735; 83930; 83935; 84100; 84300; 84443; 84550; 85025; 85027; 85610; 85651; 85730; 86140; 86850; 86900; 86901; 87070; 87184; 87186; 87205; 88304-TC; 93005; 93010; 93926-TC; 94760; 97116-GP; 97162-GP; 97597; 97598; 99285-25; G0463-25; J1644